=== PATIENT | female | born 1985 | race Caucasian/White ===

== ENCOUNTER 2019-07-29 18:25 | Emergency (ER) | payer OTHER ==
--- NOTE | 2019-07-29 19:07 | PDOC ---
Rapid Medical Evaluation Time Seen by Provider: 07/29/19 19:03 Medical Evaluation: 07/29/19 19:04 Pt c/o: nasal congestion, headache x 3 days took nyquil last night, no travel, no smoking Pt on brief exam: tachycardic, rhinorrhea, lcta Pt ordered for: none pt to proceed to the ED Discharge Disposition - Diagnosis Cough - Referrals - Patient Instructions - Post Discharge Activity
[2019-07-29] MEDS ORDERED: IBUPROFEN 600 MG TABLET (FP) PO ONE ×2 (19:10→20:20)
[2019-07-29 19:21] VITALS: BP 132/83; BMI 22.6
--- NOTE | 2019-07-29 22:15 | PDOC ---
History of Present Illness - General Chief Complaint: Cold Symptoms Stated Complaint: FEVER SORE THROAT Time Seen by Provider: 07/29/19 19:03 History Source: Patient Exam Limitations: No Limitations Past History - Past Medical History Allergies/Adverse Reactions: Allergies Allergy/AdvReac Type Severity Reaction Status Date / Time No Known Allergies Allergy Verified 07/29/19 19:04 Home Medications: Ambulatory Orders NK [No Known Home Medication] 07/29/19 - Psycho Social/Smoking Cessation Hx Smoking History: Never smoked Hx Alcohol Use: No Drug/Substance Use Hx: No *Physical Exam - Vital Signs Last Vital Signs Temp Pulse Resp BP Pulse Ox 99.4 F 124 H 16 132/83 99 07/29/19 21:00 07/29/19 19:06 07/29/19 19:06 07/29/19 19:06 07/29/19 19:06 - Physical Exam General Appearance: No: Apparent Distress HEENT: positive: TMs Normal, Pharyngeal Erythema (mild), Nasal Congestion, Rhinorrhea. negative: Muffled/Hoarse voice, Tonsillar Exudate, Tonsillar Erythema, Sinus Tenderness Respiratory/Chest: positive: Lungs Clear, Normal Breath Sounds. negative: Respiratory Distress Cardiovascular: positive: Regular Rhythm, Regular Rate, S1, S2. negative: Murmur Integumentary: positive: Normal Color Neurologic: positive: Alert ED Treatment Course - Medications Given in the ED: ED Medications Discontinued Medications Generic Name Dose Route Start Last Admin Trade Name Tim PRN Reason Stop Dose Admin Ibuprofen 600 mg 07/29/19 19:10 07/29/19 20:23 Motrin - PO 07/29/19 19:11 600 mg ONCE ONE Administration Medical Decision Making - Medical Decision Making 34 y/o F hx of HTN presents with subjective fever from yesterday along with bodyaches, cough, rhinorrhea, congestion, sore throat. +sick contacts at work. Did not take any meds today. Denies recent travel Flu negative Given motrin repeat temp 97.9 feeling better likely viral uri stable for dc 07/29/19 22:12 Discharge - Discharge Information Problems reviewed: Yes Clinical Impression/Diagnosis: Viral URI Condition: Stable Disposition: HOME - Admission No - Additional Discharge Information Prescription Drug Monitoring Program (I-STOP) results: I-STOP not reviewed - Follow up/Referral - Patient Discharge Instructions Patient Printed Discharge Instructions: DI for Viral Upper Respiratory Infection -- Adult Additional Instructions: Thank you for choosing [facility]. It was a pleasure taking care of you. You have viral infection Alternate between Tylenol every 4 and Motrin every 6 hours as needed for fever Recommend rest and hydration Follow-up with your doctor in 2 days Return to the Emergency Department if your symptoms worsen or persist or have other concerning symptoms. Rik por elegir el Hospital [facility]. Fue un placer cuidar de ti. Tiene go infeccin viral Alterne entre Tylenol cada 4 y Motrin cada 6 horas segn sea necesario para la fiebre Recomendar descanso e hidratacin. Seguimiento con tapia mdico en [place]. Regrese al departamento de emergencias si rosalie sntomas empeoran o persisten o si tiene otros sntomas preocupantes. - Post Discharge Activity
[2019-07-29 22:44] VITALS: PULSE 96; TEMP 98.1
== END 2019-07-29 22:43 | disposition home or self-care (01) ==
LOC: JER 18:25
DX: J06.9 Acute upper respiratory infection, unspecified (principal); B97.89 Other viral agents as the cause of diseases classified elsewhere
CPT/HCPCS: 87804; 99281-25